=== PATIENT | female | born 1945 | race Caucasian/White ===

== ENCOUNTER 2017-02-28 10:27 | Emergency (ER) | payer MEDICARE, OTHER ==
[2017-02-28 10:41] VITALS: RESP 16; TEMP 97.8
[2017-02-28 10:51] VITALS: BP 128/69; PULSE 57; O2SAT 99
== END 2017-02-28 11:23 | disposition home or self-care (01) | DRG 103 ==
LOC: ED 10:27
DX: R51 Headache (principal); Z86.79 Personal history of other diseases of the circulatory system
CPT/HCPCS: 70450; 99282; 99283